=== PATIENT | male | born 1970 | race American Indian/Alaskan Native ===

== ENCOUNTER 2019-04-13 05:58 | Day surgery (SDC) | payer OTHER ==
[2019-04-13 06:56] LABS: Basophils # (Auto) 0.1 K/mm3 (0.0-0.1); Basophils % (Auto) 1.1 % (0.0-1.8); Eosinophils # (Auto) 0.1 K/mm3 (0.0-0.4); Eosinophils % (Auto) 1.7 % (0.0-4.3); Hematocrit 40.2 % (35.5-45.6); Hemoglobin 13.5 gm/dl (11.8-15.2); Lymphocytes % (Auto) 32.5 % (13.4-35.0); Mean Corpuscular HGB Conc 34 % (32-34); Mean Corpuscular Volume 88 fl (84-94); Monocytes # (Auto) 0.4 K/mm3 (0.0-0.8); Monocytes % (Auto) 6.2 % (0.0-7.3); Platelet Count 270 K/mm3 (140-440); Red Blood Count 4.57 M/mm3 (3.65-5.03); Red Cell Distribution Width 13.9 % (13.2-15.2)
[2019-04-13] MEDS ORDERED: NACL 0.9% 500 ML 500 ML IV SCH (07:00)
[2019-04-13 07:11] LABS: INR 0.91 (0.87-1.13)
[2019-04-13 07:13] LABS: BUN/Creatinine Ratio 17; Blood Urea Nitrogen 17 mg/dL (9-20); Calcium 9.7 mg/dL (8.4-10.2); Hemolysis Index 9
[2019-04-13] MEDS ORDERED: ECOTRIN PO ONE (07:30)
[2019-04-13] MEDS ORDERED: PLAVIX PO ONE (08:00)
[2019-04-13] MEDS ORDERED: HEPARIN 10,000 UNITS/10 ML ONE (08:18)
[2019-04-13] MEDS ORDERED: HEPARIN/NS 5000 UNIT/500ML(CATH LAB) 1,000 ML IR ONE (08:18)
[2019-04-13] MEDS ORDERED: CALAN ONE (08:18)
[2019-04-13] MEDS ORDERED: XYLOCAINE 2% INFILTRATI ONE (08:18)
[2019-04-13] MEDS ORDERED: NITROGLYCERIN SYRINGE 3 ML ONE (08:19)
[2019-04-13] MEDS ORDERED: VERSED ONE (08:35)
[2019-04-13] MEDS ORDERED: SUBLIMAZE ONE (08:35)
--- NOTE | 2019-04-13 09:20 | Short Stay Summary ---
Short Stay Documentation Date of service: 04/13/19 - History H&P: obtained from office - Allergies and Medications Current Medications: Allergies No Known Allergies Allergy (Unverified 04/13/19 05:58) Home Medications Medication Instructions Recorded Confirmed Last Taken Type Aspirin 325 mg PO QDAY 04/13/19 04/13/19 04/13/19 History Atorvastatin [Lipitor Tab] 80 mg PO QHS 04/13/19 04/13/19 04/12/19 History Clopidogrel [Plavix] 75 mg PO DAILY 04/13/19 04/13/19 04/13/19 History Glimepiride [Amaryl] 2 mg PO DAILY 04/13/19 04/13/19 04/12/19 History ISOSORBIDE MONOnitrate [Imdur ER] 30 mg PO DAILY 04/13/19 04/13/19 04/12/19 History Losartan [Cozaar] 50 mg PO DAILY 04/13/19 04/13/19 04/12/19 History Metformin HCl [metFORMIN] 1,000 mg PO BID 04/13/19 04/13/19 04/12/19 History Metoprolol [Lopressor TAB] 50 mg PO DAILY 04/13/19 04/13/19 04/12/19 History NIFEdipine [Procardia] 10 mg PO DAILY 04/13/19 04/13/19 04/12/19 History glipiZIDE [Glucotrol] 5 mg PO DAILY 04/13/19 04/13/19 04/12/19 History hydroCHLOROthiazide [Hctz] 12.5 mg PO QDAY 04/13/19 04/13/19 04/12/19 History Active Medications Sodium Chloride (Nacl 0.9% 500 Ml) 500 mls @ 50 mls/hr IV DIRECT DARIA Stop: 04/13/19 16:59 Last Admin: 04/13/19 07:25 Dose: 50 mls/hr Documented by: - Brief post op/procedure progress note Date of procedure: 04/13/19 Pre-op diagnosis: abnl stress and cardiomyopathy Post-op diagnosis: same Procedure: see report Anesthesia: local Estimated blood loss: none Pathology: none - Hospital course Hospital course: see report - Disposition Condition at discharge: Good Disposition: [id number] TO HOME OR SELFCARE - Discharge Diagnoses (1) CAD (coronary artery disease) Status: Acute Qualifiers: Coronary Disease-Associated Artery/Lesion type: [place] artery [place] vs. 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
--- NOTE | 2019-04-13 09:45 | Cardiac Catherization Report ---
LEFT HEART CATHETERIZATION ORDERING PHYSICIAN: Dr. Sandoval. CLINICAL INFORMATION: This is a 48-year-old -Turk[place] gentleman with morbid obesity is going for gastric sleeve, has a history of known coronary artery disease, cardiomyopathy, stress test shows large ischemia in the lateral territory with decreased EF. 1. The patient was done under moderate sedation, 1 mg Versed, 50 mcg of fentanyl. Total sedation time was 11 minutes. Started at 8:49 a.m., finished at 9:00 a.m. 2. Left heart catheterization performed in the right radial artery, sterile technique, local anesthesia, 6-[place] radial sheath inserted. 3. Left system engaged with JL3.5 catheter. Left main is large and patent with mild irregularities, bifurcates into large LAD, proximal is patent with mild irregularities. Mid stent is widely patent, from the distal LAD becomes a small caliber vessel, diffusely diseased with a wraparound LAD with focal areas of 80% noted, but vessels less than 2 mm. Diagonal 1 and diagonal 2 are small caliber vessels that are patent with mild luminal irregularities. Circumflex is a large dominant vessel, is patent with mild luminal irregularities in the AV groove portion. Ramus is a small caliber vessel, proximal 99% with left to left collaterals. OM1 and OM2 are [id number] caliber vessel, patent with diffusely diseased, proximal 60% bilaterally. LPDA is a small caliber vessel with 99% with diffuse small vessel disease distally, small caliber vessel, less than 2 mm. RCA engaged with JR4 catheter, small nondominant. LV gram shows borderline LV function, EF 45%. LVEDP of 30 mmHg, LV is 103. Aortic is 105/61. No gradient across the aortic valve on pullback. 5-[place] catheters were taken over a guidewire, 6-[place] radial sheath was discontinued. Radial band applied. No hematoma, no bleeding. SUMMARY: 1. Left main patent, epicardial vessels are patent with LAD patent, mid stent patent, but distal LAD is diffusely diseased distally at the apex. Circumflex AV groove is patent. Ramus is a small vessel chronic totally occluded. OM1 and OM2 proximal 60%. LPDA is also 99%, small vessel disease. RCA is patent. There is a small vessel disease with diabetes. The patient has mild LV dysfunction. 2. Continue medical management. Discussed in detail with the patient and patient's family. ODELL: 04/13/2019 09:13 JOB# [id number] GAIL/MORIAH
[2019-04-13] MEDS ORDERED: HumuLIN R SUB-Q ONE (10:00)
[2019-04-13] MEDS ORDERED: ULTRAM PO ONE (11:07)
[2019-04-13] MEDS ORDERED: ULTRAM ONE (11:08)
[2019-04-13 12:12] VITALS: BP 159/97
== END 2019-04-13 12:50 | disposition home or self-care (01) ==
LOC: CATHLABREC 05:58
PROVIDERS: ATTEND Internal Medicine
DX: I25.10 Atherosclerotic heart disease of native coronary artery without angina pectoris (principal); I10 Essential (primary) hypertension; E66.01 Morbid (severe) obesity due to excess calories; I42.8 Other cardiomyopathies; K21.9 Gastro-esophageal reflux disease without esophagitis; E78.2 Mixed hyperlipidemia; E10.59 Type 1 diabetes mellitus with other circulatory complications; Z79.82 Long term (current) use of aspirin; Z79.899 Other long term (current) drug therapy; Z79.84 Long term (current) use of oral hypoglycemic drugs; Z87.891 Personal history of nicotine dependence; Z98.890 Other specified postprocedural states; Z80.8 Family history of malignant neoplasm of other organs or systems; Z86.73 Personal history of transient ischemic attack (TIA), and cerebral infarction without residual deficits; Z82.49 Family history of ischemic heart disease and other diseases of the circulatory system; Z79.01 Long term (current) use of anticoagulants
CPT/HCPCS: 36415; 80048; 82962; 85025; 85610; 85730; 93005; 93010; 93458; 96372; 99156; C1894; J1644; J2250; J3010; J7040; J1815; Q9967